=== PATIENT | female | born 1990 | race Caucasian/White ===

== ENCOUNTER 2019-07-07 05:44 | Emergency (ER) | payer OTHER ==
[~2019-07-07] VITALS: Ht 154.9 cm; Wt 68.0 kg
--- OUTSIDE RECORDS SUMMARY | ~2019-07-07 | XMS | Clinical Summary ---
Demographics + + + | Address | [address] | | | [place] [address] | + + + | Home Phone | | + + + | Preferred Language | Unknown | + + + | Marital Status | Single | + + + | Congregation Affiliation | Unknown | + + + | Race | Unknown | + + + | Ethnic Group | Unknown | + + + Author + + + | Author | [facility] (Historical as of | | | 10-02-18) | + + + | Organization | [facility] (Historical as of | | | 10-02-18) | + + + | Address | Unknown | + + + | Phone | Unavailable | + + + Support + + +---------+ + | Name | Relationship | Address | Phone | + + +---------+ + | Voice,Mail | ECON | Unknown | | + + +---------+ + Care Team Providers + +------+ + | Care Drilling And Production Superintendent Name | Role | Phone | + +------+ + PP | Unavailable | + +------+ + Allergies No Known Allergies Current Medications No known medications Active Problems Not on file Social History + +-------+ +--------+------+ | Tobacco Use | Types | Packs/Day | Years | Date | | | | | Used | | + +-------+ +--------+------+ | Current Some Day | | | | | | Smoker | | | | | + +-------+ +--------+------+ + +---+---+---+ | Smokeless Tobacco: | | | | | Never Used | | | | + +---+---+---+ + + +---------+ + | Alcohol Use | Drinks/We | oz/Week | Comments | | | ek | | | + + +---------+ + | Yes | | | | + + +---------+ + + + + | Sex Assigned at | Date Recorded | | | | + + + | Not on file | | + + + Last Filed Vital Signs + + + + | Vital Sign | Reading | Time Taken | + + + + | Blood Pressure | 110/80 | 01/31/2018 3:49 PM PST | + + + + | Pulse | 60 | 01/31/2018 3:49 PM PST | + + + + | Temperature | 36.9 C (98.4 F) | 01/31/2018 3:49 PM PST | + + + + | Respiratory Rate | 16 | 01/31/2018 3:49 PM PST | + + + + | Oxygen Saturation | 100% | 01/31/2018 3:49 PM PST | + + + + | Inhaled Oxygen | - | - | | Concentration | | | + + + + | Weight | 78.4 kg (172 lb 14.4 | 01/31/2018 3:49 PM PST | | | oz) | | + + + + | Height | 162.6 cm (5' 4") | 01/31/2018 3:49 PM PST | + + + + | Body Mass Index | 29.68 | 01/31/2018 3:49 PM PST | + + + + Plan of Treatment + + + + + | Health Maintenance | Due Date | Last Done | Comments | + + + + + | Vaccine: | | | | | Dtap/Tdap/Td (1 - | 8 | | | | Tdap) | | | | + + + + + | Vaccine: | | | | | Pneumococcal 19-64 | 8 | | | | (PPSV23 only) Medium | | | | | Risk (1 of 1 - | | | | | PPSV23) | | | | + + + + + | Cervical Cancer | | | | | Screening (Pap) | 9 | | | + + + + + | Vaccine: Influenza | | | | | (Season Ended) | 0 | | | + + + + + Results Not on filefrom Last 3 Months
--- OUTSIDE RECORDS SUMMARY | ~2019-07-07 | XMS | Clinical Summary ---
Demographics + + + | Address | [address] | | | [place] [address] | + + + | Home Phone | | + + + | Preferred Language | Unknown | + + + | Marital Status | Single | + + + | Rastafari Affiliation | Unknown | + + + | Race | Unknown | + + + | Ethnic Group | Unknown | + + + Author + + + | Author | [facility] (Historical as of | | | 10-02-18) | + + + | Organization | [facility] (Historical as of | | | 10-02-18) [...] Team Providers + +------+ + | Care Equipment Tech Name | Role | Phone | + [...]
--- OUTSIDE RECORDS SUMMARY | 2019-07-07 05:48 | XMS ---
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 Ke has no Care Guidelines for this patient. [place] [facility]12 [address] [facility] NOTE: Visits indicate total known visits. ED/C VISIT TRACKING (12 MO.) 07/07/2019 05:45 [facility] [place] TYPE: Emergency COMPLAINT: - HALLUCINATIONS/FEELING UNSAFE 07/06/2019 23:59 [facility] [place] TYPE: Emergency COMPLAINT: - PAIN INPATIENT VISIT TRACKING (12 MO.) No inpatient visits to display in this time frame [email or web address]
== END 2019-07-07 06:22 | disposition home or self-care (01) ==
LOC: ED 05:44
DX: Z00.8 Encounter for other general examination (principal); F17.200 Nicotine dependence, unspecified, uncomplicated
CPT/HCPCS: 99284

== ENCOUNTER 2019-07-08 16:03 | Emergency (ER) | payer OTHER ==
[~2019-07-08] VITALS: Ht 154.9 cm; Wt 68.0 kg
--- OUTSIDE RECORDS SUMMARY | ~2019-07-08 | XMS | Clinical Summary ---
Demographics + + + | Address | [address] | | | [place] [address] | + + + | Home Phone | | + + + | Preferred Language | Unknown | + + + | Marital Status | Single | + + + | Scientologist Affiliation | Unknown | + + + | Race | Unknown | + + + | Ethnic Group | Unknown | + + + Author + + + | Author | [facility] (Historical as of | | | 10-02-18) | + + + | Organization | [facility] (Historical as of | | | 10-02-18) [...] Team Providers + +------+ + | Care Implementation Advisor Name | Role | Phone | + [...]
--- OUTSIDE RECORDS SUMMARY | ~2019-07-08 | XMS | Clinical Summary ---
Demographics + + + | Address | [address] | | | [place] [address] | + + + | Home Phone | | + + + | Preferred Language | Unknown | + + + | Marital Status | Single | + + + | Jehovah'S Witness Affiliation | Unknown | + + + | Race | Unknown | + + + | Ethnic Group | Unknown | + + + Author + + + | Author | [facility] (Historical as of | | | 10-02-18) | + + + | Organization | [facility] (Historical as of | | | 10-02-18) [...] Team Providers + +------+ + | Care Outside Sales Manager Name | Role | Phone | + [...]
--- OUTSIDE RECORDS SUMMARY | 2019-07-08 16:06 | XMS ---
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 Care History Medical/Surgical 07/08/2019 [facility] - PATIENT IS A [facility] ELIGIBLE, \T\middot;\T\nbsp; PLEASE REFER PATIENT TO [facility] FOR NON EMERGENT MEDICAL NEEDS. \T\middot;\T\nbsp; [facility] CAN SEE PATIENTS SAME DAY FOR APTS IF PATIENT CALLS FIRST THING IN THE MORNING. E.D. VISIT COUNT (12 MO.) [address] [facility] TOTAL 3 NOTE: Visits indicate total known visits. ED/UCC VISIT TRACKING (12 MO.) 07/08/2019 16:04 [facility] [place] TYPE: Emergency COMPLAINT: - FLU SYMPTOMS 07/07/2019 05:45 [facility] Fernandez [place] TYPE: Emergency COMPLAINT: - HALLUCINATIONS/FEELING UNSAFE 07/06/2019 23:[address] [facility] [address] [facility] [place] TYPE: Emergency COMPLAINT: - PAIN DIAGNOSES: - Nicotine dependence, cigarettes, uncomplicated - Strange and inexplicable behavior - Brief psychotic disorder INPATIENT VISIT TRACKING (12 MO.) No inpatient visits to display in this time frame [email or web address]
== END 2019-07-08 20:21 | disposition home or self-care (01) ==
LOC: ED 16:03
DX: R05 Cough (principal); F17.200 Nicotine dependence, unspecified, uncomplicated
CPT/HCPCS: 99283

== ENCOUNTER 2019-07-19 20:43 | Emergency (ER) | payer OTHER ==
[~2019-07-19] VITALS: Ht 154.9 cm; Wt 68.0 kg
--- OUTSIDE RECORDS SUMMARY | ~2019-07-19 | XMS | Clinical Summary ---
Demographics + + + | Address | [address] | | | [place] [address] | + + + | Home Phone | | + + + | Preferred Language | Unknown | + + + | Marital Status | Single | + + + | Buddhist Affiliation | Unknown | + + + | Race | Unknown | + + + | Ethnic Group | Unknown | + + + Author + + + | Author | [facility] (Historical as of | | | 10-02-18) | + + + | Organization | [facility] (Historical as of | | | 10-02-18) [...] Team Providers + +------+ + | Care Bellhop Captain Name | Role | Phone | + [...]
--- OUTSIDE RECORDS SUMMARY | ~2019-07-19 | XMS | Clinical Summary ---
Demographics + + + | Address | [address] | | | [place] [address] | + + + | Home Phone | | + + + | Preferred Language | Unknown | + + + | Marital Status | Single | + + + | Moravian Affiliation | Unknown | + + + | Race | Unknown | + + + | Ethnic Group | Unknown | + + + Author + + + | Author | [facility] (Historical as of | | | 10-02-18) | + + + | Organization | [facility] (Historical as of | | | 10-02-18) [...] Team Providers + +------+ + | Care Bi Architect Name | Role | Phone | + [...]
--- OUTSIDE RECORDS SUMMARY | 2019-07-19 20:44 | XMS ---
PreManage Notification: GUILLERMINA ROMEO Security Management Lead Events No recent Security Events currently on file CRITERIA MET - [facility] - 2 Visits in 30 Days CARE PROVIDERS MIRYAM GAVIRIApractor 07/08/2019-Current PHONE: [phone] Name Unknown Clinic/Center 07/08/2019-Current PHONE: [phone] Ke has no Care Guidelines for this patient. Care History Medical/Surgical 07/08/2019 [facility] - PATIENT IS A [facility] ELIGIBLE, \T\middot;\T\nbsp; PLEASE REFER PATIENT TO [facility] FOR NON EMERGENT MEDICAL NEEDS. \T\middot;\T\nbsp; [facility] CAN SEE PATIENTS SAME DAY FOR APTS IF PATIENT CALLS FIRST THING IN THE MORNING. E.D. VISIT COUNT (12 MO.) 4 [facility] Obrien TOTAL 4 NOTE: Visits indicate total known visits. ED/UCC VISIT TRACKING (12 MO.) 07/19/2019 20:43 [facility] [place] TYPE: Emergency COMPLAINT: - IUD CONCERN 07/08/2019 16:04 [facility] [place] TYPE: Emergency COMPLAINT: - FLU SYMPTOMS DIAGNOSES: - Nicotine dependence, unspecified, uncomplicated - Cough 07/07/2019 05:45 [facility] [place] TYPE: Emergency COMPLAINT: - HALLUCINATIONS/FEELING UNSAFE DIAGNOSES: - Nicotine dependence, unspecified, uncomplicated - Encounter for other general examination 07/06/2019 23:59 [facility]andez [place] TYPE: Emergency COMPLAINT: - PAIN DIAGNOSES: - Nicotine dependence, cigarettes, uncomplicated - Strange and inexplicable behavior - Brief psychotic disorder INPATIENT VISIT TRACKING (12 MO.) No inpatient visits to display in this time frame [email or web address]
== END 2019-07-19 23:45 | disposition home or self-care (01) ==
LOC: ED 20:43
DX: F29 Unspecified psychosis not due to a substance or known physiological condition (principal); F41.9 Anxiety disorder, unspecified
CPT/HCPCS: 81001; 99284

== ENCOUNTER 2019-07-20 17:25 | Emergency (ER) | payer OTHER ==
[~2019-07-20] VITALS: Ht 162.6 cm; Wt 64.4 kg
--- OUTSIDE RECORDS SUMMARY | ~2019-07-20 | XMS | Clinical Summary ---
Demographics + + + | Address | [address] | | | [place] [address] | + + + | Home Phone | | + + + | Preferred Language | Unknown | + + + | Marital Status | Single | + + + | Scientologist Affiliation | Unknown | + + + | Race | Unknown | + + + | Ethnic Group | Unknown | + + + Author + + + | Author | [facility] (Historical as of | | | 10-02-18) | + + + | Organization | [facility] (Historical as of | | | 10-02-18) [...] Team Providers + +------+ + | Care Music Therapist [employer] Name | Role | Phone | + [...]
--- OUTSIDE RECORDS SUMMARY | 2019-07-20 17:28 | XMS ---
PreManage Notification: GUILLERMINA RMOEO Security Computer Systems Security Administrator Events No recent Security Events currently on file CRITERIA MET - [facility] - 2 Visits in 30 Days CARE PROVIDERS MIRYAM GAVIRIApractor 07/08/2019-Current PHONE: [phone] Name Unknown Clinic/Center 07/08/2019-Current PHONE: [phone] Ke has no Care Guidelines for this patient. Care History Medical/Surgical 07/08/2019 [facility] - PATIENT IS A [facility] ELIGIBLE, \T\middot;\T\nbsp; PLEASE REFER PATIENT TO [facility] FOR NON EMERGENT MEDICAL NEEDS. \T\middot;\T\nbsp; [facility] CAN SEE PATIENTS SAME DAY FOR APTS IF PATIENT CALLS FIRST THING IN THE MORNING. E.D. VISIT COUNT (12 MO.) 5 [facility] Obrien TOTAL 5 NOTE: Visits indicate total known visits. ED/UCC VISIT TRACKING (12 MO.) 07/20/2019 17:25 [facility] [place] TYPE: Emergency COMPLAINT: - MEDICAL CLEARANCE 07/19/2019 20:43 [facility] Fernandez [place] TYPE: Emergency [...] visits to display in this time frame [email or web address]
== END 2019-07-21 12:33 | disposition home or self-care (01) ==
LOC: ED 17:25
DX: F23 Brief psychotic disorder (principal); F17.200 Nicotine dependence, unspecified, uncomplicated
CPT/HCPCS: 80053; 80176; 81001; 84443; 85025; 99283; G0480

== ENCOUNTER 2020-09-29 10:55 | Emergency (ER) | payer OTHER ==
[~2020-09-29] VITALS: Ht 162.6 cm; Wt 64.4 kg
[2020-09-29] MEDS ORDERED: PROBIOTIC1 EAC1 PO (11:17)
[2020-09-29] MEDS ORDERED: FISH OIL 1,0001 EAC2 NG (11:17)
[2020-09-29] MEDS ORDERED: TENDERA-OB SOF1 EACH PO (11:17)
[2020-09-29] MEDS ORDERED: CALCIUM500 M1 PO (11:18)
== END 2020-09-29 14:24 | disposition home or self-care (01) ==
LOC: ED 10:55
DX: R04.0 Epistaxis (principal); Z3A.19 19 weeks gestation of pregnancy; Z87.891 Personal history of nicotine dependence; Z79.899 Other long term (current) drug therapy
CPT/HCPCS: 99283

== ENCOUNTER 2021-01-31 15:48 | Inpatient (IN) | payer OTHER ==
[~2021-01-31] VITALS: Ht 162.6 cm; Wt 113.4 kg
[~2021-01-31 15:48] MED LIST: CALCIUM500 M1 PO; FISH OIL 1,0001 EAC2 NG; PROBIOTIC1 EAC1 PO; TENDERA-OB SOF1 EACH PO
--- NOTE | 2021-02-01 02:51 | PR ---
[facility] [address] [place], [place] [address] Signed Progress Notes IP Datetime Report Generated by CPN: 02/01/2021 02:50 PROGRESS NOTES: [id number] Impression: Normal Progression of Labor; Reassuring Heart Rate Procedures: Sterile Vag Exam Plan: Continue Present Management; Anticipate Vaginal Delivery Informed Consent Obtain: Vaginal Delivery VITAL SIGNS: [id number] Vital Signs: Reviewed; Within Normal Limits EXAM: [id number] Dilatation: 10.0 Effacement: 100 Station: 0 Contractions: Rare MEMBRANES: [id number] Comments: Pt seen and examined. Doing well. Comfortable w/ epidural. Anticipate soon FETUS A: [id number] FHR Baseline: 130 Variability: Moderate 6-25bpm Accelerations: 15X15 Decelerations: None FHR Category: Category I Presentation: Vertex Comments on Fetus A: No evidence of metabolic acidosis FETUS B: [id number] Signing Physician: Miryam Rosenthal DO Copies: ~ *Electronically Signed* 02/01/21 0250 MIRYAM ROSENTHAL DO PATIENT NAME: GUILLERMINA ROMEO PROGRESS NOTE DATE OF : 88 PHYSICIAN: MIRYAM ROSENTHAL DO RPT #: [id number] REPORT IS CONFIDENTIAL AND NOT TO BE RELEASED WITHOUT AUTHORIZATION
--- NOTE | 2021-02-02 10:23 | PR ---
[facility] [address] [facility] [place], [place] [address] Signed PP Progress Notes Datetime Report Generated by CPN: 02/02/2021 10:23 SUBJECTIVE: [id number] Pain: Within Normal Limits Nausea/Vomiting: Denies Vital Signs: [id number] Vital Signs: Reviewed; Within Normal Limits Abdomen/Uterus: Normal Lochia: Normal Extremities: Normal IMPRESSION/PLAN/PROCEDURES: [id number] Impression: Normal Progression Plan: Discharge Procedures: None Progress Notes: Patient doing well, without complaint, ready to go home. Signing Physician: Roland Vega MD Copies: ~ *Electronically Signed* 02/02/21 1023 ROLAND VEGA MD PATIENT NAME: GUILLERMINA ROMEO PROGRESS NOTE DATE OF : 88 PHYSICIAN: ROLAND VEGA MD RPT #: [id number] REPORT IS CONFIDENTIAL AND NOT TO BE RELEASED WITHOUT AUTHORIZATION
== END 2021-02-02 14:40 | disposition home or self-care (01) | DRG 807 ==
LOC: FBCO 15:48 → FBC 16:27
PROVIDERS: ADMIT Obstetrics & Gynecology; ATTEND Obstetrics & Gynecology
PROC: 10E0XZZ Delivery of Products of Conception, External Approach (ICD-10-PCS; principal; 2021-02-01)
PROC: 3E0R3BZ Introduction of Anesthetic Agent into Spinal Canal, Percutaneous Approach (ICD-10-PCS; 2021-02-01)
PROC: 00HU33Z Insertion of Infusion Device into Spinal Canal, Percutaneous Approach (ICD-10-PCS; 2021-02-01)
DX: O99.62 Diseases of the digestive system complicating childbirth (principal); Z37.0 Single live birth; O99.324 Drug use complicating childbirth; K21.9 Gastro-esophageal reflux disease without esophagitis; O43.123 Velamentous insertion of umbilical cord, third trimester; Z3A.36 36 weeks gestation of pregnancy; F12.90 Cannabis use, unspecified, uncomplicated
CPT/HCPCS: 85027; A9270; J2590; J2795; J3010; J7121

== ENCOUNTER 2021-05-21 15:57 | Emergency (ER) | payer OTHER ==
[~2021-05-21] VITALS: Ht 152.4 cm; Wt 113.4 kg
== END 2021-05-22 22:37 | disposition home or self-care (01) ==
LOC: ED 15:57
DX: F29 Unspecified psychosis not due to a substance or known physiological condition (principal); Z88.0 Allergy status to penicillin; Z20.822 Contact with and (suspected) exposure to COVID-19; F41.9 Anxiety disorder, unspecified; F32.A Depression, unspecified
CPT/HCPCS: 36415; 80053; 81001; 84703; 85025; 99284; A9270; G0480; U0003

== ENCOUNTER 2024-02-25 21:25 | Inpatient (IN) | payer OTHER ==
[2024-02-25 21:39] LABS: HEMATOCRIT 32.9 % (35.0-50.0); HEMOGLOBIN 10.9 g/dL (12.0-18.0); MCH 25.9 (27-36); MCHC 33.2 g/dl (30-36); MCV 78.1 fl (81-99); RBC 4.21 M/ul (4.3-5.7); RDW 15.4 (10.5-15.0)
[2024-02-25] MEDS ORDERED: LACTATED RINGER'S 1,000 ML IV SCH (21:45)
[2024-02-25] MEDS ORDERED: CALCIUM CARBONATE 500 MG CHEW PO PRN (21:45)
[2024-02-25] MEDS ORDERED: OXYTOCIN/DEXTROSE 5% 20 UNITS/100 ML BAG IV SCH (21:45)
[2024-02-25] MEDS ORDERED: MAGNESIUM HYDROXIDE/AL HYDROX 30 ML CUP PO PRN (21:45)
[2024-02-25] MEDS ORDERED: OXYTOCIN/0.9 % SODIUM CHLORIDE 500 ML IV SCH (21:45)
[2024-02-25] MEDS ORDERED: LACTATED RINGER'S 1,000 ML IV PRN (21:45)
[2024-02-25 21:54] LABS: AMPHETAMINES, URINE NEGATIVE (NEGATIVE); BARBITURATES, URINE NEGATIVE (NEGATIVE); BENZODIAZEPINE, URINE NEGATIVE (NEGATIVE); BUPRENORPHINE, URINE NEGATIVE (NEGATIVE); CANNABINOID, URINE POSITIVE (NEGATIVE); COCAINE, URINE NEGATIVE (NEGATIVE); ECSTASY, URINE NEGATIVE (NEGATIVE); FENTANYL, URINE NEGATIVE (NEGATIVE); METHADONE, URINE NEGATIVE (NEGATIVE); OPIATES, URINE NEGATIVE (NEGATIVE); OXYCODONE, URINE NEGATIVE (NEGATIVE); PHENCYCLIDINE, URINE NEGATIVE (NEGATIVE)
[2024-02-25 23:14] LABS: ABO B; ANTIBODY SCREEN POSITIVE; RH POSITIVE
[2024-02-25] MEDS ORDERED: ROPIVACAINE 0.2% 200 ML BAG ONE (23:49)
[2024-02-26] MEDS ORDERED: LACTATED RINGER'S 2,000 ML IV ONE (00:30)
[2024-02-26] MEDS ORDERED: ePHEDrine sulfate 5 MG/ML SYRINGE IV PRN (00:30)
[2024-02-26] MEDS ORDERED: LACTATED RINGER'S 500 ML IV PRN (00:30)
[2024-02-26] MEDS ORDERED: ROPIVACAINE 0.2% 200 ML BAG EPIDURAL SCH (00:30)
[2024-02-26] MEDS ORDERED: dexmedeTOMIDine HCl 200 MCG/2 ML VIAL ONE (01:46)
[2024-02-26] MEDS ORDERED: WITCH HAZEL/GLYCERIN 1 EA PAD TOP PRN (03:15)
[2024-02-26] MEDS ORDERED: OXYCODONE/APAP 5/325 TAB PO PRN (03:15)
[2024-02-26] MEDS ORDERED: OXYTOCIN/0.9 % SODIUM CHLORIDE 500 ML IV SCH (03:15)
[2024-02-26] MEDS ORDERED: IBUPROFEN 600 MG TAB PO PRN (03:15)
[2024-02-26] MEDS ORDERED: MAGNESIUM HYDROXIDE/AL HYDROX 30 ML CUP PO PRN (03:15)
[2024-02-26] MEDS ORDERED: ACETAMINOPHEN 325 MG TAB PO PRN (03:15)
[2024-02-26] MEDS ORDERED: BENZOCAINE 60 ML AEROSOL TOP PRN (03:15)
[2024-02-26] MEDS ORDERED: HYDROCODONE/ACETA 5/325 TAB PO PRN (03:15)
[2024-02-26] MEDS ORDERED: HYDROCORTISONE ACETATE 25 MG SUPP PR PRN (03:15)
[2024-02-26] MEDS ORDERED: MAGNESIUM HYDROXIDE 30 ML UDC PO PRN (03:15)
[2024-02-26] MEDS ORDERED: CALCIUM CARBONATE 500 MG CHEW PO PRN (03:15)
[2024-02-26] MEDS ORDERED: OXYCODONE HCL 5 MG TAB PO PRN (03:15)
[2024-02-26] MEDS ORDERED: FERROUS SULFATE 325 MG TAB PO SCH (08:00)
[2024-02-26] MEDS ORDERED: SENNOSIDES/DOCUSATE 1 EA TAB PO SCH (09:00)
[2024-02-27 05:31] LABS: HEMATOCRIT 32.4 % (35.0-50.0); HEMOGLOBIN 10.7 g/dL (12.0-18.0); MCH 25.9 (27-36); MCHC 33.1 g/dl (30-36); MCV 78.1 fl (81-99); RBC 4.15 M/ul (4.3-5.7); RDW 15.6 (10.5-15.0)
[2024-02-27] MEDS ORDERED: FLUOXETINE HCL 20 MG CAP PO SCH (09:58)
--- NOTE | 2024-02-27 15:35 | PR ---
[facility] [address] [facility] [place], [place] [address] Signed PP Progress Notes Datetime Report Generated by CPN: 02/27/2024 15:35 SUBJECTIVE: [id number] Pain: Within Normal Limits Nausea/Vomiting: Denies Flatus: Yes Vital Signs: [id number] Vital Signs: Reviewed; Within Normal Limits Notable Details: No issues. Mild lochia. Feels ready for discharge. Tylenol, Motrin, and Fluoxetine prescribed. EXAM: Ongoing Cardiovascular: Normal Respiratory: Normal Abdomen/Uterus: Normal Lochia: Normal Vulva/Perineum: Normal Breasts: Normal CVA Tenderness: Normal Extremities: Normal Progress: Normal IMPRESSION/PLAN/PROCEDURES: [id number] Impression: Normal Progression Plan: Continue Present Management; Discharge Procedures: None Progress Notes: No issues. Desires discharge to home. Signing Physician: Laureen Barba MD Copies: ~ *Electronically Signed* 02/27/24 1535 LAUREEN BARBA MD PATIENT NAME: GUILLERMINA ROMEO PROGRESS NOTE DATE OF : 88 PHYSICIAN: LAUREEN BARBA MD RPT #: [id number] REPORT IS CONFIDENTIAL AND NOT TO BE RELEASED WITHOUT AUTHORIZATION
== END 2024-02-27 18:17 | disposition home or self-care (01) | DRG 807 ==
LOC: FBC 21:25
PROVIDERS: ADMIT Obstetrics & Gynecology; ATTEND Obstetrics & Gynecology
PROC: 10E0XZZ Delivery of Products of Conception, External Approach (ICD-10-PCS; principal; 2024-02-26)
DX: O42.02 Full-term premature rupture of membranes, onset of labor within 24 hours of rupture (principal); Z37.0 Single live birth; O99.344 Other mental disorders complicating childbirth; F41.9 Anxiety disorder, unspecified; F32.A Depression, unspecified; Z3A.38 38 weeks gestation of pregnancy; O99.52 Diseases of the respiratory system complicating childbirth; J45.909 Unspecified asthma, uncomplicated; Z88.0 Allergy status to penicillin; O77.0 Labor and delivery complicated by meconium in amniotic fluid
CPT/HCPCS: 01960; 36415; 59025; 80307; 85027; 86850; 86870; 86900; 86901; A9270; G0463; J7121

== ENCOUNTER 2024-06-20 20:40 | Emergency (ER) | payer OTHER ==
[~2024-06-20] VITALS: Ht 152.4 cm; Wt 89.6 kg
[2024-06-20 20:54] LABS: BASOPHILS 0.6 % (0-2); EOSINOPHILS 0.8 % (0-6); HEMATOCRIT 43.5 % (35.0-50.0); HEMOGLOBIN 14.4 g/dL (12.0-18.0); LYMPHOCYTES 18.7 % (24-44); MCH 25.3 (27-36); MCHC 33.1 g/dl (30-36); MCV 76.3 fl (81-99); MONOCYTES 7.2 % (0-12); NEUTROPHILS 72.7 % (39-80); PLATELET COUNT 325 K/uL (140-440); RBC 5.71 M/ul (4.3-5.7); RDW 18.1 (10.5-15.0)
[2024-06-20 21:07] LABS: ALBUMIN 3.7 g/dL (3.4-5.0); ALBUMIN/GLOBULIN RATIO 0.95 (1.1-2.4); ALCOHOL, MEDICAL <3 ng/dL (<3); ALKALINE PHOSPHATASE 110 U/L (46-116); ALT (SGPT) 43 U/L (14-59); ANION GAP 10.7 (7-21); AST (SGOT) 32 U/L (15-37); BILIRUBIN, TOTAL 0.5 mg/dL (0.2-1.0); BUN/CREATININE RATIO 9.18 (6.0-28.6); CALCIUM 8.7 mg/dL (8.5-10.1); CARBON DIOXIDE 28 mmol/L (21-32); CHLORIDE 99 mmol/L (98-107); CREATININE, SERUM 0.98 mg/dL (0.55-1.02); GLOMERULAR FILTRATION RATE,EST 77 mL/min (>60); POTASSIUM 3.7 mmol/L (3.5-5.1); PROTEIN, TOTAL 7.6 g/dL (6.4-8.2); UREA NITROGEN 9 mg/dL (7-18)
[2024-06-20 21:11] LABS: BILIRUBIN, URINE NEGATIVE (negative); BLOOD/HGB, URINE NEGATIVE (Negative); KETONE, URINE TRACE (Negative); LEUK ESTERASE, URINE TRACE (negative); NITRITE, URINE NEGATIVE (negative)
[2024-06-20 21:18] LABS: BACTERIA, URINE RARE /hpf (negative); CASTS, URINE NONE SEEN \\lpf; COLLECTION TYPE, URINE CLEAN CATCH; CRYSTALS, URINE NONE SEEN (0-1+); EPITHELIAL CELLS, URINE SQUAMOUS 3+ /lpf (0-1+); RED BLOOD CELLS, URINE 0-1 /hpf (0-5); REFLEX CULTURE, URINE No (No)
[2024-06-20 21:25] LABS: AMPHETAMINES, URINE NEGATIVE (NEGATIVE); BARBITURATES, URINE NEGATIVE (NEGATIVE); BENZODIAZEPINE, URINE NEGATIVE (NEGATIVE); BUPRENORPHINE, URINE NEGATIVE (NEGATIVE); CANNABINOID, URINE POSITIVE (NEGATIVE); COCAINE, URINE NEGATIVE (NEGATIVE); ECSTASY, URINE NEGATIVE (NEGATIVE); FENTANYL, URINE NEGATIVE (NEGATIVE); METHADONE, URINE NEGATIVE (NEGATIVE); OPIATES, URINE NEGATIVE (NEGATIVE); OXYCODONE, URINE NEGATIVE (NEGATIVE); PHENCYCLIDINE, URINE NEGATIVE (NEGATIVE)
[2024-06-20 21:29] LABS: ACETAMINOPHEN 0 ug/mL (10-30); SALICYLATE 1.2 mg/dL (2.8-20.0); TSH, 3RD GENERATION 2.332 uIU/mL (0.358-3.740)
[2024-06-20] MEDS ORDERED: DIVALPROEX SODIUM 500 MG TABLET.DR PO ONE (23:15)
[2024-06-22 12:35] VITALS: BP 114/69
== END 2024-06-22 12:38 ==
LOC: ED 20:40
PROVIDERS: Family Medicine
DX: R41.82 Altered mental status, unspecified (principal); J45.909 Unspecified asthma, uncomplicated; Z88.0 Allergy status to penicillin; Z87.891 Personal history of nicotine dependence
CPT/HCPCS: 36415; 70450; 80053; 80307; 81001; 83735; 84443; 84703; 85025; 99285-25; G0480